=== PATIENT | male | born 1980 | race Caucasian/White ===

== ENCOUNTER 2016-07-19 05:10 | Inpatient (IN) | payer BC ==
[2016-07-19] MEDS ORDERED: NORMAL SALINE 1,000 ML IV ONE (05:22)
[2016-07-19] MEDS ORDERED: ONDANSETRON HCL/PF 2 MG/ML VIAL IV ONE (05:23)
[2016-07-19] MEDS ORDERED: PANTOPRAZOLE SODIUM 40 MG in NORMAL SALINE 100 ML IV ONE (05:23)
[2016-07-19 05:29] LABS: Hematocrit 49.6 % (42.0-52.0); Hemoglobin 17.3 gm/dL (13.5-18.0); Mean Cell Volume 93.1 fl (78-100); Mean Corpuscular Hemoglobin 32.5 pg (27-31); Mean Corpuscular Hgb Conc 34.9 g/dl (32-36); Mean Platelet Volume 9.2 fl (6.0-9.5); Neutrophil # 10.6 K/mm3 (1.3-6.0); Neutrophil % 79.8 % (42-75.0); Platelet Count 254 K/mm3 (150-450); Red Blood Count 5.33 M/mm3 (4.7-6.0); Red Cell Distribution Width 12.3 % (11.5-14.0); White Blood Count 13.3 K/mm3 (4.0-10.5)
[2016-07-19] MEDS ORDERED: ONDANSETRON HCL/PF 2 MG/ML VIAL ONE (05:31)
[2016-07-19] MEDS ORDERED: PANTOPRAZOLE SODIUM 40 MG/100 ML PIGGYBACK IV ONE (05:31)
--- NOTE | 2016-07-19 05:38 | ERNOTE ---
Abdominal HPI - Narrative Date of Service: 07/19/16 - General Chief Complaint: Abdominal Pain Time Seen by Provider: 07/19/16 05:21 Source: patient, EMS Exam Limitations: no limitations - Immun/Allergies/Home Medications Immunizatons: IMMUNIZATION HX History of Influenza Vaccine Yes Hx Pneumococcal Vaccination No Allergies/Adverse Reactions: Allergies No Known Allergies Allergy (Verified 07/19/16 05:18) Home Medications: HOME MEDICATIONS amLODIPine BESYLATE 07/19/16 [Last Taken Unknown] - History of Present Illness Narrative: Mid abdominal pain for 2 weeks. He drinks 8-20 beer per day. He had 8 beer last night but can't stand the pain now. He has been vomiting since 0130. No hematemesis. No fever. No diarrhea. Has not had anything like this before. Date (Duration): 07/05/16 Timing: getting worse Quality: severe, aching, sharpness Modifying Factors - (Improves): Present: sitting up Modifying Factors - (Worsens): Present: eating Associated Symptoms: Absent: chest pain, diarrhea-gross blood, shortness of breath Prior Abdominal Problems: Present: none Prior Treatment: Absent: recently seen, treated by physician, currently on antibiotics Review of Systems - Review of Systems Constitutional: Absent: fever, chills EYE: Present: no symptoms reported Respiratory: Present: no symptoms reported Cardiology: Present: no symptoms reported Gastrointestinal/Abdominal: Present: nausea, vomiting, abdominal pain, eating less, drinking less Genitourinary: Present: no symptoms reported Musculoskeletal: Present: no symptoms reported Skin: Absent: rash Neurological: Present: no symptoms reported Hematologic/Lymphatic: Absent: easy bruising, easy bleeding Psych: Present: no symptoms reported - Patient's Past Medical History Patient History - Medical: No pertinent hx, Alcohol Abuse Patient History - Cardiac/Respiratory: Hypertension Patient History - Cancer: No Hx of Cancer Patient History - Surgical Procedures: No surgical history - Social History Living Situations: home Smoking Status: Current every day smoker Alcohol Use: heavy Drug Use: none Physical Exam - Physical Exam General Appearance: Present: alert, moderate distress Eye Exam: Normal inspection: bilateral, PERRL: bilateral, EOMI: bilateral Ears, Nose, Throat: Present: normal ENT inspection, hearing grossly normal Neck: Present: nontender Respiratory: Present: no respiratory distress, normal breath sounds, lungs clear Cardiovascular/Chest: Present: regular rate, rhythm, no murmur, normal peripheral pulses Gastrointestinal/Abdominal: Present: normal bowel sounds, tenderness - mid abd and epigastrium. Absent: guarding, rebound Back Exam: Present: normal inspection, no CVA tenderness. Absent: CVA tenderness (R), CVA tenderness (L) Extremity Exam: Present: normal inspection Neurological Exam: Present: alert, normal mood/affect Skin Exam: Present: other - petechia face ED Progress - Results and Orders Patient's Lab Results:: I have reviewed the patient's lab results. - Vital Signs Patient's Vital Signs:: I have reviewed the patient's vital signs. Vital Signs: Vital Signs 07/19/16 05:11 Temperature 36.0 C L Pulse Rate 115 H Respiratory 18 Rate Blood Pressure 158/102 - CT/Ultrasound CT/Ultrasound Narrative: CT - eric-pancreatic fluid, no pseudocyst. Appx normal. - Progress/Reassessment Chief Complaint: Abdominal Pain Plan - Plan Plan: Acute alcoholic pancreatitis, admit, NPO, IV fluids, CIWA, Ativan or valium. Pain control. Serial labs. Discussed with Dr. Hooks. Departure - Departure Clinical Impression: Acute alcoholic pancreatitis Disposition: [facility] Condition: Fair
[2016-07-19 05:39] LABS: INR 0.96 INR (0.90-1.10); Partial Thrombolplastin Time 24.3 Seconds (24-32)
[2016-07-19 05:44] LABS: ALT 101 U/L (19-67); AST 99 U/L (0-48); Albumin * 3.9 gm/dl (3.4-5.0); Alkaline Phosphatase * 81 U/L (50-170); Anion Gap 14.1 mmol/L (6.8-13.8); BUN/Creatinine Ratio 10.2 (9.0-21.6); Bilirubin, Total 0.4 mg/dL (0.0-1.1); Blood Urea Nitrogen 11 mg/dL (6-23); Ca. Corrected For Albumin 9.3 mg/dL (8.4-10.2); Calcium * 9.5 mg/dL (7.9-10.9); Carbon Dioxide 28.6 mmol/L (24-32.6); Chloride 100 mmol/L (97-106); Glucose * 139 mg/dL (70-110); Potassium 3.7 mmol/L (3.4-4.6); Sodium 139 mmol/L (132-142)
[2016-07-19 05:55] LABS: Amylase * 2487 U/L (25-115)
[2016-07-19] MEDS ORDERED: HYDROmorphone HCL 1 MG/ML DISP.SYRIN IV ONE (06:20)
[2016-07-19] MEDS ORDERED: HYDROmorphone HCL 1 MG/ML DISP.SYRIN ONE (06:22)
[2016-07-19 06:26] LABS: Lipase 57575 U/L (73-393)
[2016-07-19] MEDS ORDERED: THIAMINE HCL 100 MG in NORMAL SALINE 50 ML IV ONE (06:38)
[2016-07-19] MEDS ORDERED: NALOXONE HCL 1 MG/1 ML SYRG IV PRN (09:30)
[2016-07-19] MEDS: HYDROmorphone HCL IN 0.9% NACL 50 ML CARTRIDGE IV PRN ×3 (09:52→21:05)
[2016-07-19] MEDS ORDERED: ONDANSETRON HCL/PF 2 MG/ML VIAL IV PRN (14:24)
[2016-07-19] MEDS: MULTIVIT INFUSN,ADULT 4,VIT K 10 ML, THIAMINE HCL 100 MG in DEXTROSE 5 % IN WATER 1,000 ML IV SCH ×3 (20:26)
--- NOTE | 2016-07-19 23:49 | HP ---
Chief Complaint - Chief Complaint Date of Service: 07/19/16 Time of Service: 12:17 Chief Complaint: Abdominal Pain History of Present Illness: Cristofer is a 36 yo male who reports abdominal pain progressively getting worse over the last 2 weeks. He has had nausea and emesis. He reports typically drinks 6-20 beers a day, but because of feeling sick has not had anything to drink for a few days. He has never had pancreatitis. With worsening abdominal pain he presented to the [facility] ER for evaluation. He had bloodwork that showed lipase of 57,[address] was performed showing pancreatitis without abscess or pseudo-cyst. - Patient's Past Medical History Patient History - Medical: No pertinent hx, Alcohol Abuse Patient History - Cardiac/Respiratory: Hypertension Patient History - Cancer: No Hx of Cancer Patient History - Surgical Procedures: No surgical history - Family History Mother Family History - Medical: History Unknown Family History - Cardiac/Respiratory: History Unknown Father Family History - Medical: History Unknown Family History - Cardiac/Respiratory: History Unknown - Social History Living Situations: alone Smoking Status: Current every day smoker Have you smoked in the past 12 months: Yes Do you dip or chew tobacco: No Patient requests Smoking Cessation Consult: No Initiate information on Smoking Cessation: No Alcohol Use: heavy Drug Use: none Review Of Systems (GEN) - Review of Systems Generalized/Overall Review: Absent: Weakness, Chills, Fever EENTM: Present: No Symptoms Reported Respiratory: Present: No Symptoms Reported Cardiac: Present: No Symptoms Reported Abdominal: Present: Nausea, Vomiting, Abdominal Pain. Absent: Constipation, Diarrhea Genitourinary: Present: No Symptoms Reported Musculoskeletal: Present: No Symptoms Reported Neurological: Present: No Symptoms Reported Skin: Present: No Symptoms Reported Endocrine: Present: No Symptoms Reported Allergies/Adverse Reactions: Allergies Allergy/AdvReac Type Severity Reaction Status Date / Time No Known Allergies Allergy Verified 07/19/16 05:18 Home Medications: HOME MEDICATIONS amLODIPine BESYLATE [Norvasc] 5 mg PO DAILY 07/19/16 [Last Taken 07/18/16] Exam - Exam Vital Signs: Vital Signs - Last Taken Temp 36.5 C 07/19/16 18:00 Pulse 101 H 07/19/16 18:00 Resp 16 07/19/16 18:00 BP 147/103 07/19/16 18:00 Pulse Ox 95 07/19/16 18:00 Constitutional: Present: Alert, Oriented x3, Cooperative ENT Exam: Present: hearing grossly normal Eye Exam: bilateral eye: normal inspection Respiratory: Present: lungs clear, normal breath sounds Cardiovascular/Chest: Present: regular rate, rhythm, no murmur Abdomen: Present: Normal bowel sounds, soft, nondistended, tender - diffuse Skin Exam: Present: normal color, warm/dry, no cyanosis Diagnostic Studies: Laboratory Results WBC 13.3 K/mm3 (4.0-10.5) H 07/19/16 05:27 RBC 5.33 M/mm3 (4.7-6.0) 07/19/16 05:27 Hgb 17.3 gm/dL (13.5-18.0) 07/19/16 05:27 Hct 49.6 % (42.0-52.0) 07/19/16 05:27 MCV 93.1 fl (78-100) 07/19/16 05:27 MCH 32.5 pg (27-31) H 07/19/16 05:27 MCHC 34.9 g/dl (32-36) 07/19/16 05:27 RDW 12.3 % (11.5-14.0) 07/19/16 05:27 Plt Count 254 K/mm3 (150-450) 07/19/16 05:27 MPV 9.2 fl (6.0-9.5) 07/19/16 05:27 Immature Gran % (Auto) 0.50 % (0.001-0.429) H 07/19/16 05:27 Immature Gran # (Auto) 0.06 K/mm3 (0.000-0.0310) H 07/19/16 05:27 Neutrophils % 79.8 % (42-75.0) H 07/19/16 05:27 Lymphocytes % 9.6 % (20-51) L 07/19/16 05:27 Monocytes % 9.2 % (0.0-9) H 07/19/16 05:27 Eosinophils % 0.5 % (0.0-3.0) 07/19/16 05:27 Basophils % 0.4 % (0.0-1.0) 07/19/16 05:27 Nucleated RBC % 0.0 k/mm3 (0-1) 07/19/16 05:27 Neutrophils # 10.6 K/mm3 (1.3-6.0) H 07/19/16 05:27 Lymphocytes # 1.3 k/mm3 (1.5-3.5) L 07/19/16 05:27 Monocytes # 1.2 k/mm3 (0.0-1.0) H 07/19/16 05:27 Eosinophils # 0.1 k/mm3 (0.0-0.7) 07/19/16 05:27 Absolute Basophils 0.1 k/mm3 (0.0-0.1) 07/19/16 05:27 PT 10.0 Seconds (9.4-11.4) 07/19/16 05:27 INR (Anticoag Therapy) 0.96 INR (0.90-1.10) 07/19/16 05:27 PTT (Elaine) 24.3 Seconds (24-32) 07/19/16 05:27 Sodium 139 mmol/L (132-142) 07/19/16 05:27 Plasma Sodium 140 mmol/L (130-142) 07/19/16 05:27 Potassium 3.7 mmol/L (3.4-4.6) 07/19/16 05:27 Chloride 100 mmol/L (97-106) 07/19/16 05:27 Carbon Dioxide 28.6 mmol/L (24-32.6) 07/19/16 05:27 Anion Gap 14.1 mmol/L (6.8-13.8) H 07/19/16 05:27 BUN 11 mg/dL (6-23) D 07/19/16 05:27 Creatinine 1.08 mg/dL (0.4-1.4) 07/19/16 05:27 Est GFR (Non-Af Amer) 81 mL/min (60-130) D 07/19/16 05:27 BUN/Creatinine Ratio 10.2 (9.0-21.6) 07/19/16 05:27 Random Glucose 139 mg/dL (70-110) H 07/19/16 05:27 Calcium 9.5 mg/dL (7.9-10.9) 07/19/16 05:27 Calcium Adj for Albumin 9.3 mg/dL (8.4-10.2) 07/19/16 05:27 Total Bilirubin 0.4 mg/dL (0.0-1.1) 07/19/16 05:27 AST 99 U/L (0-48) H 07/19/16 05:27 ALT 101 U/L (19-67) H 07/19/16 05:27 Alkaline Phosphatase 81 U/L (50-170) 07/19/16 05:27 Total Protein 8.0 gm/dL (6.2-8.2) 07/19/16 05:27 Albumin 3.9 gm/dl (3.4-5.0) 07/19/16 05:27 Amylase 2487 U/L (25-115) H 07/19/16 05:27 Lipase 52620 U/L (73-393) H 07/19/16 05:27 Ethyl Alcohol Less than 3.0 mg/dL (0.0-10.0) 07/19/16 05:27 Assessment/Plan - Assessment/Plan (1) Acute alcoholic pancreatitis Assessment: Cristofer is a 36 yo male with acute alcohol pancreatitis without abscess or pseudocyst. Will treat with GI rest and make NPO, will treat pain with Dilaudid [employer], will give IVF, and monitor pancreatic enzymes. Due to the severity of lipase 57,000 expect 3-5 days for his pancreatitits to improve. Once pain is not requiring IV pain medication will advance diet as tolerated. Will admit to acute inpatient status. Problem: Acute
[2016-07-20] MEDS: diphenhydrAMINE HCL 50 MG/ML VIAL IV PRN (01:29)
[2016-07-20] MEDS ORDERED: LORazepam 1 MG TABLET PO PRN ×3 (01:50)
[2016-07-20] MEDS: DEXTROSE 5%-0.5 NORMAL SALINE 1,000 ML IV PRN ×2 (05:11→11:19)
[2016-07-20] MEDS: HYDROmorphone HCL IN 0.9% NACL 50 ML CARTRIDGE IV PRN ×2 (05:38→14:58)
[2016-07-20] MEDS: MULTIVIT INFUSN,ADULT 4,VIT K 10 ML, THIAMINE HCL 100 MG in DEXTROSE 5 % IN WATER 1,000 ML IV SCH ×6 (06:34→18:59)
[2016-07-20 08:50] LABS: Hematocrit 46.2 % (42.0-52.0); Hemoglobin 15.8 gm/dL (13.5-18.0); Mean Cell Volume 94.5 fl (78-100); Mean Corpuscular Hemoglobin 32.3 pg (27-31); Mean Corpuscular Hgb Conc 34.2 g/dl (32-36); Mean Platelet Volume 9.1 fl (6.0-9.5); Neutrophil # 10.3 K/mm3 (1.3-6.0); Neutrophil % 87.4 % (42-75.0); Platelet Count 209 K/mm3 (150-450); Red Blood Count 4.89 M/mm3 (4.7-6.0); Red Cell Distribution Width 12.5 % (11.5-14.0); White Blood Count 11.8 K/mm3 (4.0-10.5)
[2016-07-20] MEDS: FOLIC ACID 1 MG TABLET PO SCH (08:50)
[2016-07-20] MEDS: amLODIPine BESYLATE 5 MG TABLET PO SCH (08:50)
[2016-07-20 09:10] LABS: Albumin * 3.4 gm/dl (3.4-5.0); BUN/Creatinine Ratio 10.9 (9.0-21.6); Bilirubin, Total 0.7 mg/dL (0.0-1.1); Ca. Corrected For Albumin 8.7 mg/dL (8.4-10.2); Calcium * 8.5 mg/dL (7.9-10.9); Carbon Dioxide 25.9 mmol/L (24-32.6); Potassium 3.9 mmol/L (3.4-4.6); Total Protein 7.2 gm/dL (6.2-8.2)
[2016-07-20] MEDS: CLONIDINE HCL 0.1 MG TABLET PO SCH ×2 (14:20→21:47)
--- NOTE | 2016-07-20 23:43 | PN ---
Subjective - Date and Time Seen Date: 07/20/16 Time: 13:25 Subjective Narrative: Abdominal pain improved, mild nausea. Lipase down from 57k to 7k. Feeling really thirsty. Objective - Vitals Vitals: Last Vital Signs Temp 36.8 C 07/20/16 23:10 Pulse 106 H 07/20/16 23:10 Resp 20 07/20/16 23:10 BP 138/90 07/20/16 23:10 Pulse Ox 89 L 07/20/16 23:10 - Abnormal Lab Findings Abnormal Lab Findings: Abnormal Lab Results 07/20/16 07/20/16 Range/Units 08:43 08:43 WBC 11.8 H (4.0-10.5) K/mm3 MCH 32.3 H (27-31) pg Immature Gran # (Auto) 0.05 H (0.000-0.0310) K/mm3 Neutrophils % 87.4 H (42-75.0) % Lymphocytes % 4.1 L (20-51) % Neutrophils # 10.3 H (1.3-6.0) K/mm3 Lymphocytes # 0.5 L (1.5-3.5) k/mm3 Anion Gap 15.0 H (6.8-13.8) mmol/L Random Glucose 129 H (70-110) mg/dL Amylase 834 H (25-115) U/L Lipase 7254 H (73-393) U/L - Exam Constitutional: Present: Alert, Oriented x3, Cooperative ENT Exam: Present: hearing grossly normal Respiratory: Present: lungs clear, normal breath sounds Cardiovascular/Chest: Present: regular rate, rhythm, no murmur Abdomen: Present: Normal bowel sounds, soft, nondistended, tender Assessment/Plan - Problems/Diagnosis (1) Acute alcoholic pancreatitis Problem: Acute Narrative: Lipase dramatically improved. Continue NPO as he is still having pain. Continue IVF.
[2016-07-21] MEDS: HYDROmorphone HCL IN 0.9% NACL 50 ML CARTRIDGE IV PRN ×2 (01:03→08:59)
[2016-07-21] MEDS: diphenhydrAMINE HCL 50 MG/ML VIAL IV PRN (02:01)
[2016-07-21] MEDS: DEXTROSE 5%-0.5 NORMAL SALINE 1,000 ML IV PRN ×2 (04:04→11:53)
[2016-07-21] MEDS: CLONIDINE HCL 0.1 MG TABLET PO SCH ×3 (06:18→23:14)
[2016-07-21 06:59] LABS: Hematocrit 40.6 % (42.0-52.0); Hemoglobin 13.7 gm/dL (13.5-18.0); Mean Cell Volume 95.1 fl (78-100); Mean Corpuscular Hemoglobin 32.1 pg (27-31); Mean Corpuscular Hgb Conc 33.7 g/dl (32-36); Mean Platelet Volume 9.6 fl (6.0-9.5); Neutrophil % 83.6 % (42-75.0); Platelet Count 158 K/mm3 (150-450); Red Blood Count 4.27 M/mm3 (4.7-6.0); Red Cell Distribution Width 12.4 % (11.5-14.0); White Blood Count 10.8 K/mm3 (4.0-10.5)
[2016-07-21 07:14] LABS: Albumin * 2.8 gm/dl (3.4-5.0); Anion Gap 8.5 mmol/L (6.8-13.8); BUN/Creatinine Ratio 5.7 (9.0-21.6); Ca. Corrected For Albumin 8.7 mg/dL (8.4-10.2); Calcium * 8.1 mg/dL (7.9-10.9); Carbon Dioxide 31.8 mmol/L (24-32.6); Potassium 3.3 mmol/L (3.4-4.6); Total Protein 6.5 gm/dL (6.2-8.2)
[2016-07-21] MEDS: amLODIPine BESYLATE 5 MG TABLET PO SCH (08:28)
[2016-07-21] MEDS: FOLIC ACID 1 MG TABLET PO SCH (08:28)
[2016-07-21] MEDS ORDERED: POTASSIUM CHLORIDE IV ONE (09:15)
[2016-07-21] MEDS ORDERED: NORMAL SALINE IV ONE (09:15)
[2016-07-21] MEDS: ACETAMINOPHEN 325 MG TABLET PO PRN (11:19)
[2016-07-21] MEDS: HYDROmorphone HCL 1 MG/ML DISP.SYRIN IV PRN ×2 (19:10→23:14)
[2016-07-21] MEDS: MULTIVIT INFUSN,ADULT 4,VIT K 10 ML, THIAMINE HCL 100 MG in DEXTROSE 5 % IN WATER 1,000 ML IV SCH ×3 (19:46)
--- NOTE | 2016-07-21 23:48 | PN ---
Subjective - Date and Time Seen Date: 07/21/16 Time: 16:47 Subjective Narrative: Reports feeling better. No nausea. Abdominal pain 3/10. Thirsty. Using ice chips and mouth swabs. Objective - Vitals Vitals: Last Vital Signs Temp 37.6 C H 07/21/16 18:47 Pulse 103 H 07/21/16 23:14 Resp 17 07/21/16 18:47 BP 125/75 07/21/16 23:14 Pulse Ox 93 07/21/16 18:47 - Abnormal Lab Findings Abnormal Lab Findings: Abnormal Lab Results 07/21/16 07/21/16 Range/Units 06:45 06:45 WBC 10.8 H (4.0-10.5) K/mm3 RBC 4.27 L (4.7-6.0) M/mm3 Hct 40.6 L (42.0-52.0) % MCH 32.1 H (27-31) pg MPV 9.6 H (6.0-9.5) fl Neutrophils % 83.6 H (42-75.0) % Lymphocytes % 6.5 L (20-51) % Monocytes % 9.4 H (0.0-9) % Neutrophils # 9.0 H (1.3-6.0) K/mm3 Lymphocytes # 0.7 L (1.5-3.5) k/mm3 Potassium 3.3 L (3.4-4.6) mmol/L Chloride 95 L (97-106) mmol/L BUN 5 L (6-23) mg/dL BUN/Creatinine Ratio 5.7 L (9.0-21.6) Albumin 2.8 L (3.4-5.0) gm/dl Amylase 449 H (25-115) U/L Lipase 4022 H (73-393) U/L - Exam Constitutional: Present: Alert, Oriented x3, Cooperative ENT Exam: Present: hearing grossly normal Respiratory: Present: lungs clear, normal breath sounds Cardiovascular/Chest: Present: regular rate, rhythm, no murmur Abdomen: Present: Normal bowel sounds, soft, nondistended, tender Skin Exam: Present: normal color, warm/dry, no cyanosis Assessment/Plan - Problems/Diagnosis (1) Acute alcoholic pancreatitis Problem: Acute Narrative: Improving. Lipase down to 4k, pain minimal. Will change dilaudid [employer] to just [employer] and remove the continuous dose. Continue NPO status. Once able to discontinue dilaudid will start clear liquid diet.
[2016-07-22] MEDS: HYDROmorphone HCL 1 MG/ML DISP.SYRIN IV PRN ×5 (03:25→21:23)
[2016-07-22] MEDS: DEXTROSE 5%-0.5 NORMAL SALINE 1,000 ML IV PRN ×2 (04:17→11:53)
[2016-07-22] MEDS: CLONIDINE HCL 0.1 MG TABLET PO SCH ×3 (05:17→21:24)
[2016-07-22] MEDS: amLODIPine BESYLATE 5 MG TABLET PO SCH (09:13)
[2016-07-22] MEDS: FOLIC ACID 1 MG TABLET PO SCH (09:13)
[2016-07-22 09:20] LABS: Hematocrit 37.8 % (42.0-52.0); Mean Corpuscular Hemoglobin 32.3 pg (27-31); Mean Corpuscular Hgb Conc 34.4 g/dl (32-36); Mean Platelet Volume 9.2 fl (6.0-9.5); Neutrophil # 7.5 K/mm3 (1.3-6.0); Neutrophil % 83.5 % (42-75.0); Platelet Count 162 K/mm3 (150-450); Red Blood Count 4.02 M/mm3 (4.7-6.0); Red Cell Distribution Width 11.9 % (11.5-14.0)
[2016-07-22 09:35] LABS: Albumin * 2.4 gm/dl (3.4-5.0); Anion Gap 11.1 mmol/L (6.8-13.8); BUN/Creatinine Ratio 5.3 (9.0-21.6); Bilirubin, Total 1.4 mg/dL (0.0-1.1); Ca. Corrected For Albumin 9.3 mg/dL (8.4-10.2); Calcium * 8.3 mg/dL (7.9-10.9); Carbon Dioxide 28.8 mmol/L (24-32.6); Potassium 2.9 mmol/L (3.4-4.6); Total Protein 6.3 gm/dL (6.2-8.2)
[2016-07-22] MEDS: POTASSIUM CHLORIDE 20 MEQ TABLET.SA PO SCH ×2 (11:04→21:24)
[2016-07-22] MEDS: MULTIVIT INFUSN,ADULT 4,VIT K 10 ML, THIAMINE HCL 100 MG in DEXTROSE 5 % IN WATER 1,000 ML IV SCH ×3 (18:45)
[2016-07-22] MEDS: ACETAMINOPHEN 325 MG TABLET PO PRN (18:46)
[2016-07-22] MEDS: BISACODYL 10 MG SUPP.RECT RC SCH (21:25)
--- NOTE | 2016-07-22 23:43 | PN ---
Subjective - Date and Time Seen Date: 07/22/16 Time: 12:30 Subjective Narrative: Patient reports pain better, no nausea/vomiting/fever/chills. Appetite returns. Objective - Vitals Vitals: Last Vital Signs Temp 38.5 C H 07/22/16 18:33 Pulse 95 07/22/16 21:24 Resp 20 07/22/16 18:33 BP 128/80 07/22/16 21:24 Pulse Ox 92 07/22/16 18:33 - Abnormal Lab Findings Abnormal Lab Findings: Abnormal Lab Results 07/22/16 07/22/16 Range/Units 09:09 09:09 RBC 4.02 L (4.7-6.0) M/mm3 Hgb 13.0 L (13.5-18.0) gm/dL Hct 37.8 L (42.0-52.0) % MCH 32.3 H (27-31) pg Neutrophils % 83.5 H (42-75.0) % Lymphocytes % 5.2 L (20-51) % Monocytes % 10.9 H (0.0-9) % Neutrophils # 7.5 H (1.3-6.0) K/mm3 Lymphocytes # 0.5 L (1.5-3.5) k/mm3 Potassium 2.9 L (3.4-4.6) mmol/L Chloride 95 L (97-106) mmol/L BUN 4 L (6-23) mg/dL BUN/Creatinine Ratio 5.3 L (9.0-21.6) Total Bilirubin 1.4 H (0.0-1.1) mg/dL Albumin 2.4 L (3.4-5.0) gm/dl Amylase 137 H (25-115) U/L Lipase 602 H (73-393) U/L - Exam Constitutional: Present: Alert, Oriented x3, Cooperative ENT Exam: Present: hearing grossly normal Respiratory: Present: lungs clear, normal breath sounds Cardiovascular/Chest: Present: regular rate, rhythm, no murmur Abdomen: Present: Normal bowel sounds, soft, nondistended, tender - lower quadrants Assessment/Plan - Problems/Diagnosis (1) Acute alcoholic pancreatitis Problem: Acute Narrative: Abdominal pain still present but lower quadrants. Suspect from stool retention. Encouraged use of suppository to help. Will stop dilaudid and advance to clear liquids as he does not appear to have pain from pancreatitis and enzymes have significantly improved.
[2016-07-23] MEDS: ACETAMINOPHEN 325 MG TABLET PO PRN ×2 (01:46→11:12)
[2016-07-23] MEDS: HYDROmorphone HCL 1 MG/ML DISP.SYRIN IV PRN ×2 (02:10→06:39)
[2016-07-23] MEDS: DEXTROSE 5%-0.5 NORMAL SALINE 1,000 ML IV PRN ×2 (03:37→11:08)
[2016-07-23] MEDS: CLONIDINE HCL 0.1 MG TABLET PO SCH ×3 (05:55→21:47)
[2016-07-23] MEDS: POTASSIUM CHLORIDE 20 MEQ TABLET.SA PO SCH ×2 (09:30→21:46)
[2016-07-23] MEDS: BISACODYL 10 MG SUPP.RECT RC SCH (09:30)
[2016-07-23] MEDS: amLODIPine BESYLATE 5 MG TABLET PO SCH (09:31)
[2016-07-23] MEDS: FOLIC ACID 1 MG TABLET PO SCH (09:31)
[2016-07-23 10:31] LABS: Hematocrit 39.9 % (42.0-52.0); Hemoglobin 13.3 gm/dL (13.5-18.0); Mean Cell Volume 94.1 fl (78-100); Mean Corpuscular Hemoglobin 31.4 pg (27-31); Mean Corpuscular Hgb Conc 33.3 g/dl (32-36); Mean Platelet Volume 9.4 fl (6.0-9.5); Neutrophil # 5.9 K/mm3 (1.3-6.0); Neutrophil % 78.6 % (42-75.0); Platelet Count 230 K/mm3 (150-450); Red Blood Count 4.24 M/mm3 (4.7-6.0); Red Cell Distribution Width 11.9 % (11.5-14.0); White Blood Count 7.4 K/mm3 (4.0-10.5)
[2016-07-23 10:51] LABS: Albumin * 2.4 gm/dl (3.4-5.0); Anion Gap 11.6 mmol/L (6.8-13.8); BUN/Creatinine Ratio 6.1 (9.0-21.6); Bilirubin, Total 0.9 mg/dL (0.0-1.1); Ca. Corrected For Albumin 9.6 mg/dL (8.4-10.2); Calcium * 8.6 mg/dL (7.9-10.9); Carbon Dioxide 27.7 mmol/L (24-32.6); Potassium 3.3 mmol/L (3.4-4.6); Total Protein 6.7 gm/dL (6.2-8.2)
[2016-07-23] MEDS ORDERED: MAGNESIUM HYDROXIDE 30 ML UDC PO ONE (11:49)
[2016-07-23] MEDS: MULTIVIT INFUSN,ADULT 4,VIT K 10 ML, THIAMINE HCL 100 MG in DEXTROSE 5 % IN WATER 1,000 ML IV SCH ×3 (19:24)
[2016-07-23] MEDS ORDERED: MAGNESIUM CITRATE 300 ML BTL PO ONE (20:17)
[2016-07-23] MEDS ORDERED: MAGNESIUM CITRATE 300 ML BTL ONE (21:45)
--- NOTE | 2016-07-23 23:33 | PN ---
Subjective - Date and Time Seen Date: 07/23/16 Time: 12:15 Subjective Narrative: Pain minimal and localized to lower quandrants. No nausea, fever, or chills. Objective - Vitals Vitals: Last Vital Signs Temp 37.4 C 07/23/16 20:53 Pulse 83 07/23/16 21:47 Resp 16 07/23/16 20:53 BP 120/78 07/23/16 21:47 Pulse Ox 96 07/23/16 20:53 - Abnormal Lab Findings Abnormal Lab Findings: Abnormal Lab Results 07/23/16 07/23/16 Range/Units 10:10 10:10 RBC 4.24 L (4.7-6.0) M/mm3 Hgb 13.3 L (13.5-18.0) gm/dL Hct 39.9 L (42.0-52.0) % MCH 31.4 H (27-31) pg Neutrophils % 78.6 H (42-75.0) % Lymphocytes % 6.3 L (20-51) % Monocytes % 14.2 H (0.0-9) % Lymphocytes # 0.5 L (1.5-3.5) k/mm3 Monocytes # 1.1 H (0.0-1.0) k/mm3 Potassium 3.3 L (3.4-4.6) mmol/L BUN 4 L (6-23) mg/dL Est GFR (Non-Af Amer) 144 H (60-130) mL/min BUN/Creatinine Ratio 6.1 L (9.0-21.6) Albumin 2.4 L (3.4-5.0) gm/dl Lipase 495 H (73-393) U/L - Exam Constitutional: Present: Alert, Oriented x3, Cooperative ENT Exam: Present: hearing grossly normal Respiratory: Present: lungs clear, normal breath sounds Cardiovascular/Chest: Present: regular rate, rhythm, no murmur Abdomen: Present: Normal bowel sounds, soft, nondistended, tender - lower quadrants Assessment/Plan - Problems/Diagnosis (1) Acute alcoholic pancreatitis Problem: Acute Narrative: Will monitor on clear liquids, if tolerating will advance to low fat diet. Continue IVF.
[2016-07-24] MEDS: DEXTROSE 5%-0.5 NORMAL SALINE 1,000 ML IV PRN ×2 (04:09→15:27)
[2016-07-24] MEDS: CLONIDINE HCL 0.1 MG TABLET PO SCH ×3 (05:26→21:14)
[2016-07-24] MEDS: BISACODYL 10 MG SUPP.RECT RC SCH (08:49)
[2016-07-24] MEDS: FOLIC ACID 1 MG TABLET PO SCH (08:50)
[2016-07-24] MEDS: POTASSIUM CHLORIDE 20 MEQ TABLET.SA PO SCH ×2 (08:51→21:12)
[2016-07-24] MEDS: amLODIPine BESYLATE 5 MG TABLET PO SCH (08:51)
[2016-07-24 10:20] LABS: Hematocrit 36.8 % (42.0-52.0); Hemoglobin 12.9 gm/dL (13.5-18.0); Mean Cell Volume 92.2 fl (78-100); Mean Corpuscular Hemoglobin 32.3 pg (27-31); Mean Corpuscular Hgb Conc 35.1 g/dl (32-36); Mean Platelet Volume 9.7 fl (6.0-9.5); Neutrophil # 9.4 K/mm3 (1.3-6.0); Platelet Count 260 K/mm3 (150-450); Red Blood Count 3.99 M/mm3 (4.7-6.0); Red Cell Distribution Width 11.8 % (11.5-14.0); White Blood Count 11.7 K/mm3 (4.0-10.5)
[2016-07-24 11:01] LABS: Albumin * 2.4 gm/dl (3.4-5.0); Anion Gap 13.2 mmol/L (6.8-13.8); BUN/Creatinine Ratio 5.7 (9.0-21.6); Bilirubin, Total 0.6 mg/dL (0.0-1.1); Carbon Dioxide 22.2 mmol/L (24-32.6); Potassium 3.4 mmol/L (3.4-4.6); Total Protein 6.9 gm/dL (6.2-8.2)
[2016-07-24] MEDS: MULTIVIT INFUSN,ADULT 4,VIT K 10 ML, THIAMINE HCL 100 MG in DEXTROSE 5 % IN WATER 1,000 ML IV SCH ×3 (19:18)
--- NOTE | 2016-07-24 23:34 | PN ---
Subjective - Date and Time Seen Date: 07/24/16 Time: 17:11 Subjective Narrative: Reports abdominal pain and nausea were increased. He did not eat breakfast and only wanted clears for lunch and dinner. Pain is lower abdomen. Objective - Vitals Vitals: Last Vital Signs Temp 36.5 C 07/24/16 20:54 Pulse 78 07/24/16 21:14 Resp 18 07/24/16 20:54 BP 120/83 07/24/16 21:14 Pulse Ox 98 07/24/16 20:54 - Abnormal Lab Findings Abnormal Lab Findings: Abnormal Lab Results 07/24/16 07/24/16 Range/Units 09:55 09:55 WBC 11.7 H D (4.0-10.5) K/mm3 RBC 3.99 L (4.7-6.0) M/mm3 Hgb 12.9 L (13.5-18.0) gm/dL Hct 36.8 L (42.0-52.0) % MCH 32.3 H (27-31) pg MPV 9.7 H (6.0-9.5) fl Immature Gran # (Auto) 0.05 H (0.000-0.0310) K/mm3 Neutrophils % 80.0 H (42-75.0) % Lymphocytes % 6.3 L (20-51) % Monocytes % 12.7 H (0.0-9) % Neutrophils # 9.4 H (1.3-6.0) K/mm3 Lymphocytes # 0.7 L (1.5-3.5) k/mm3 Monocytes # 1.5 H (0.0-1.0) k/mm3 Carbon Dioxide 22.2 L (24-32.6) mmol/L BUN 4 L (6-23) mg/dL Est GFR (Non-Af Amer) 134 H (60-130) mL/min BUN/Creatinine Ratio 5.7 L (9.0-21.6) Random Glucose 126 H (70-110) mg/dL AST 59 H (0-48) U/L Albumin 2.4 L (3.4-5.0) gm/dl Lipase 749 H (73-393) U/L - Exam Constitutional: Present: Alert, Oriented x3, Cooperative ENT Exam: Present: hearing grossly normal Respiratory: Present: lungs clear, normal breath sounds Cardiovascular/Chest: Present: regular rate, rhythm, no murmur Abdomen: Present: Normal bowel sounds, soft, nondistended, tender - Lower quadrants Assessment/Plan - Problems/Diagnosis (1) Acute alcoholic pancreatitis Problem: Acute Narrative: Lipase bumped a little and pain worsened, however still in lower quadrants and not epigastric. Will continue on clear liquids. Will repeat CT of abdomen to re- evaluated pain as I expect it to be improving.
[2016-07-25] MEDS: DEXTROSE 5%-0.5 NORMAL SALINE 1,000 ML IV PRN ×2 (04:59→18:48)
[2016-07-25] MEDS: CLONIDINE HCL 0.1 MG TABLET PO SCH ×2 (05:43→21:27)
[2016-07-25] MEDS ORDERED: DIATRIZOATE MEGLU/DIATRIZO SOD 30 ML BTL PO ONE (06:30)
[2016-07-25] MEDS: ACETAMINOPHEN 325 MG TABLET PO PRN (07:49)
[2016-07-25 08:15] LABS: Hematocrit 37.1 % (42.0-52.0); Hemoglobin 12.9 gm/dL (13.5-18.0); Mean Cell Volume 93.2 fl (78-100); Mean Corpuscular Hemoglobin 32.4 pg (27-31); Mean Corpuscular Hgb Conc 34.8 g/dl (32-36); Mean Platelet Volume 9.4 fl (6.0-9.5); Platelet Count 356 K/mm3 (150-450); Red Blood Count 3.98 M/mm3 (4.7-6.0); Red Cell Distribution Width 11.9 % (11.5-14.0); White Blood Count 14.5 K/mm3 (4.0-10.5)
[2016-07-25 08:19] LABS: Total Cells Counted 100
[2016-07-25 08:31] LABS: Albumin * 2.5 gm/dl (3.4-5.0); Anion Gap 14.3 mmol/L (6.8-13.8); BUN/Creatinine Ratio 3.7 (9.0-21.6); Bilirubin, Total 0.5 mg/dL (0.0-1.1); Ca. Corrected For Albumin 9.7 mg/dL (8.4-10.2); Calcium * 8.8 mg/dL (7.9-10.9); Carbon Dioxide 21.4 mmol/L (24-32.6); Potassium 3.7 mmol/L (3.4-4.6); Total Protein 7.2 gm/dL (6.2-8.2)
[2016-07-25] MEDS: FOLIC ACID 1 MG TABLET PO SCH (09:06)
[2016-07-25] MEDS: POTASSIUM CHLORIDE 20 MEQ TABLET.SA PO SCH ×2 (09:07→21:27)
[2016-07-25] MEDS: amLODIPine BESYLATE 5 MG TABLET PO SCH (09:08)
[2016-07-25] MEDS: BISACODYL 10 MG SUPP.RECT RC SCH (09:10)
[2016-07-25 09:15] LABS: Atypical (Reactive) Lymph 3 % (0-2); Band 8 % (0-2.0); Lymphocyte 3 % (20-51); Monocyte 7 % (0-9); Neutrophil 79 % (42-75); Neutrophil # 11.5 K/mm3 (1.3-6.0)
[2016-07-25 09:16] LABS: Platelet Estimate Normal (NORMAL)
[2016-07-25 09:17] LABS: RBC Morphology Normal (NORMAL)
[2016-07-25] MEDS: KETOROLAC TROMETHAMINE 30 MG/ML VIAL IV PRN (15:15)
[2016-07-25] MEDS ORDERED: POTASSIUM PHOS,M-BASIC-D-BASIC 18 MM, ELECTROLYTE SOLUTION,INJ 20 ML, MULTIVIT INFUSN,A... IV SCH ×6 (16:00)
--- NOTE | 2016-07-25 17:45 | OR ---
Anesthesia Procedure Note - Anesthesia Procedure Note Narrative: Vital Signs - Last Taken Temp 36.8 C 07/25/16 15:05 Pulse 94 07/25/16 15:05 Resp 24 H 07/25/16 15:05 BP 141/88 07/25/16 15:05 Pulse Ox 99 07/25/16 15:05 O2 Oxygen Delivery Method Room Air 07/25/16 17:42 ANESTHESIA PROCEDURE NOTE Date of procedure: 07/25/2016. Time of procedure: 1630. Performed by: Rui Santos CRNA Director Speech: None . Preprocedure diagnosis: Acute pancreatitis. Need for intravenous TPN therapy. Post procedure diagnosis: Same. Procedure: Right and antecubital PICC line insertion. Indications: TPN therapy. Findings: Right antecubital double-lumen PICC line was inserted under sterile technique. Place to 50 cm. Both lumens aspirate and flush easily. Chest x- ray ordered to confirm placement. EBL: Minimal. Fluids: N/A. Specimen: N/A. Post procedure condition: The patient tolerated the procedure well. No complications were noted. Thank you for this consultation Rui Santos CRNA
[2016-07-25] MEDS: HYDROmorphone HCL 1 MG/ML DISP.SYRIN IV PRN (21:27)
--- NOTE | 2016-07-25 23:55 | PN ---
Subjective - Date and Time Seen Date: 07/25/16 Time: 16:45 Subjective Narrative: Abdominal pain continues, no nausea or vomiting or fever. Objective - Vitals Vitals: Last Vital Signs Temp 37.4 C 07/25/16 23:34 Pulse 81 07/25/16 23:34 Resp 16 07/25/16 23:34 BP 119/79 07/25/16 23:34 Pulse Ox 100 07/25/16 23:34 - Abnormal Lab Findings Abnormal Lab Findings: Abnormal Lab Results 07/25/16 07/25/16 Range/Units 08:05 08:05 WBC 14.5 H D (4.0-10.5) K/mm3 RBC 3.98 L (4.7-6.0) M/mm3 Hgb 12.9 L (13.5-18.0) gm/dL Hct 37.1 L (42.0-52.0) % MCH 32.4 H (27-31) pg Neutrophils % (Manual) 79 H (42-75) % Band Neuts % (Manual) 8 H (0-2.0) % Lymphocytes % (Manual) 3 L (20-51) % Neutrophils # (Manual) 11.5 H (1.3-6.0) K/mm3 Lymphocytes # (Manual) 0.4 L (1.5-3.5) k/mm3 Atypic/Reactive Lymphs 3 H (0-2) % Carbon Dioxide 21.4 L (24-32.6) mmol/L Anion Gap 14.3 H (6.8-13.8) mmol/L BUN 3 L (6-23) mg/dL BUN/Creatinine Ratio 3.7 L (9.0-21.6) AST 68 H (0-48) U/L ALT 70 H (19-67) U/L Albumin 2.5 L (3.4-5.0) gm/dl Amylase 139 H (25-115) U/L Lipase 1092 H (73-393) U/L - Exam Constitutional: Present: Alert, Oriented x3, Cooperative ENT Exam: Present: hearing grossly normal Respiratory: Present: lungs clear, normal breath sounds Cardiovascular/Chest: Present: regular rate, rhythm, no murmur Abdomen: Present: Normal bowel sounds, soft, nondistended, no hepatospenomegaly , tender Skin Exam: Present: normal color, warm/dry, no cyanosis Assessment/Plan - Problems/Diagnosis (1) Acute alcoholic pancreatitis Problem: Acute Qualifiers: Acute pancreatitis complication: no infection or necrosis Qualified Code(s) : K85.20 - Alcohol induced acute pancreatitis without necrosis or infection Narrative: Acute pancreatitits worsening with more abdominal pain and enzymes elevated further. NPO. PICC line placed today, will start TPN.
[2016-07-26] MEDS: KETOROLAC TROMETHAMINE 30 MG/ML VIAL IV PRN ×3 (01:43→18:06)
[2016-07-26] MEDS: DEXTROSE 5%-0.5 NORMAL SALINE 1,000 ML IV PRN ×3 (01:47→18:05)
[2016-07-26 06:23] LABS: Albumin * 2.4 gm/dl (3.4-5.0); Anion Gap 14.8 mmol/L (6.8-13.8); BUN/Creatinine Ratio 5.2 (9.0-21.6); Bilirubin, Total 0.5 mg/dL (0.0-1.1); Ca. Corrected For Albumin 10.2 mg/dL (8.4-10.2); Calcium * 9.2 mg/dL (7.9-10.9); Carbon Dioxide 20.5 mmol/L (24-32.6); Magnesium 2.2 mg/dL (1.2-2.8); Phosphorus 3.8 mg/dL (2.2-4.2); Potassium 4.3 mmol/L (3.4-4.6)
[2016-07-26] MEDS: HYDROmorphone HCL 1 MG/ML DISP.SYRIN IV PRN ×3 (07:26→21:10)
[2016-07-26] MEDS: CLONIDINE HCL 0.1 MG TABLET PO SCH ×3 (09:01→20:06)
[2016-07-26] MEDS: amLODIPine BESYLATE 5 MG TABLET PO SCH (09:18)
[2016-07-26] MEDS: BISACODYL 10 MG SUPP.RECT RC SCH (09:19)
[2016-07-26] MEDS: FOLIC ACID 1 MG TABLET PO SCH (09:19)
[2016-07-26] MEDS: POTASSIUM CHLORIDE 20 MEQ TABLET.SA PO SCH ×2 (09:19→20:06)
--- NOTE | 2016-07-26 13:21 | PN ---
Subjective - Date and Time Seen Date: 07/26/16 Time: 13:19 Subjective Narrative: Ambulating in his room. No complains. Objective - Review of Systems Generalized/Overall Review: Denies: Chills, Fever EENTM: Reports: No Symptoms Reported Respiratory: Denies: Cough, Shortness of Breath Cardiac: Denies: Chest Pain, Edema, Palpitations Abdominal: Denies: Nausea, Vomiting Genitourinary Symptoms: Denies: Urgency, Frequency - Vitals Vitals: Last Vital Signs Temp 36.7 C 07/26/16 10:29 Pulse 74 07/26/16 10:29 Resp 20 07/26/16 10:29 BP 109/73 07/26/16 10:29 Pulse Ox 99 07/26/16 10:29 - Abnormal Lab Findings Abnormal Lab Findings: Abnormal Lab Results 07/26/16 Range/Units 05:05 Carbon Dioxide 20.5 L (24-32.6) mmol/L Anion Gap 14.8 H (6.8-13.8) mmol/L BUN 4 L (6-23) mg/dL BUN/Creatinine Ratio 5.2 L (9.0-21.6) Random Glucose 132 H (70-110) mg/dL ALT 70 H (19-67) U/L Albumin 2.4 L (3.4-5.0) gm/dl - Exam Constitutional: Present: Alert, Oriented x3, Cooperative ENT Exam: Present: hearing grossly normal Neck: Present: supple Breasts: Present: Exam deferred Respiratory: Present: normal breath sounds, No rales, No wheezing Cardiovascular/Chest: Present: regular rate, rhythm, no JVD, no murmur Abdomen: Present: Normal bowel sounds, soft, nontender, distended - slightly Extremity: Present: no pedal edema, no calf tenderness Assessment/Plan - Problems/Diagnosis (1) Acute alcoholic pancreatitis Problem: Acute Qualifiers: Acute pancreatitis complication: no infection or necrosis Qualified Code(s) : K85.20 - Alcohol induced acute pancreatitis without necrosis or infection Narrative: continue with NPO and gut rest. TPN started.
[2016-07-26] MEDS: INSULIN LISPRO 100 UNITS/ML VIAL SC SCH ×2 (15:38→20:06)
[2016-07-27] MEDS: KETOROLAC TROMETHAMINE 30 MG/ML VIAL IV PRN ×4 (00:17→19:37)
[2016-07-27] MEDS: HYDROmorphone HCL 1 MG/ML DISP.SYRIN IV PRN ×4 (02:55→21:48)
[2016-07-27] MEDS: INSULIN LISPRO 100 UNITS/ML VIAL SC SCH ×4 (02:55→19:41)
[2016-07-27] MEDS: DEXTROSE 5%-0.5 NORMAL SALINE 1,000 ML IV PRN ×2 (03:48→15:40)
[2016-07-27 06:37] LABS: Albumin * 2.6 gm/dl (3.4-5.0); Anion Gap 13.2 mmol/L (6.8-13.8); BUN/Creatinine Ratio 7.9 (9.0-21.6); Bilirubin, Total 0.5 mg/dL (0.0-1.1); Calcium * 9.2 mg/dL (7.9-10.9); Carbon Dioxide 25.2 mmol/L (24-32.6); Magnesium 1.9 mg/dL (1.2-2.8); Phosphorus 3.9 mg/dL (2.2-4.2); Potassium 3.4 mmol/L (3.4-4.6); Total Protein 7.4 gm/dL (6.2-8.2)
[2016-07-27] MEDS: amLODIPine BESYLATE 5 MG TABLET PO SCH (09:01)
[2016-07-27] MEDS: FOLIC ACID 1 MG TABLET PO SCH (09:02)
[2016-07-27] MEDS: POTASSIUM CHLORIDE 20 MEQ TABLET.SA PO SCH ×2 (09:02→21:44)
[2016-07-27] MEDS: CLONIDINE HCL 0.1 MG TABLET PO SCH ×2 (09:02→21:44)
[2016-07-27] MEDS: BISACODYL 10 MG SUPP.RECT RC SCH (09:03)
--- NOTE | 2016-07-27 10:52 | PN ---
Subjective - Date and Time Seen Date: 07/27/16 Time: 10:51 Subjective Narrative: No N/V/abdominal pain. Objective - Review of Systems Generalized/Overall Review: Denies: Chills, Fever EENTM: Reports: No Symptoms Reported Respiratory: Reports: Cough. Denies: Shortness of Breath Cardiac: Denies: Chest Pain, Palpitations Abdominal: Denies: Nausea, Vomiting, Abdominal Pain Genitourinary Symptoms: Denies: Urgency, Frequency Musculoskeletal Complaints: Denies: Joint Pain - Vitals Vitals: Last Vital Signs Temp 36.3 C L 07/27/16 10:26 Pulse 102 H 07/27/16 10:26 Resp 18 07/27/16 10:26 BP 105/72 07/27/16 10:26 Pulse Ox 97 07/27/16 10:26 - Abnormal Lab Findings Abnormal Lab Findings: Abnormal Lab Results 07/26/16 07/27/16 Range/Units Unknown 05:45 BUN/Creatinine Ratio 7.9 L (9.0-21.6) AST 50 H (0-48) U/L ALT 75 H (19-67) U/L Albumin 2.6 L (3.4-5.0) gm/dl Lipase 1184 H (73-393) U/L - Exam Constitutional: Present: Alert, Oriented x3, Cooperative ENT Exam: Present: hearing grossly normal Neck: Present: supple Breasts: Present: Exam deferred Respiratory: Present: normal breath sounds, No rales, No wheezing Cardiovascular/Chest: Present: regular rate, rhythm, no JVD, no murmur Abdomen: Present: Normal bowel sounds, soft, nontender, nondistended Extremity: Present: no pedal edema, no calf tenderness Assessment/Plan - Problems/Diagnosis (1) Acute alcoholic pancreatitis Problem: Acute Qualifiers: Acute pancreatitis complication: no infection or necrosis Qualified Code(s) : K85.20 - Alcohol induced acute pancreatitis without necrosis or infection Narrative: will get TPN
[2016-07-27] MEDS: POTASSIUM PHOS,M-BASIC-D-BASIC 18 MM, ELECTROLYTE SOLUTION,INJ 20 ML, MULTIVIT INFUSN,A... IV SCH ×6 (13:49)
[2016-07-28] MEDS: DEXTROSE 5%-0.5 NORMAL SALINE 1,000 ML IV PRN ×3 (01:42→23:15)
[2016-07-28] MEDS: KETOROLAC TROMETHAMINE 30 MG/ML VIAL IV PRN ×3 (01:42→14:54)
[2016-07-28] MEDS: INSULIN LISPRO 100 UNITS/ML VIAL SC SCH ×4 (01:46→21:09)
[2016-07-28] MEDS: HYDROmorphone HCL 1 MG/ML DISP.SYRIN IV PRN ×4 (05:03→21:16)
[2016-07-28 05:55] LABS: Albumin * 2.3 gm/dl (3.4-5.0); BUN/Creatinine Ratio 9.7 (9.0-21.6); Bilirubin, Total 0.4 mg/dL (0.0-1.1); Ca. Corrected For Albumin 10.3 mg/dL (8.4-10.2); Calcium * 9.3 mg/dL (7.9-10.9); Carbon Dioxide 25.3 mmol/L (24-32.6); Magnesium 2.1 mg/dL (1.2-2.8); Phosphorus 4.1 mg/dL (2.2-4.2); Potassium 4.3 mmol/L (3.4-4.6); Total Protein 6.8 gm/dL (6.2-8.2)
[2016-07-28] MEDS: BISACODYL 10 MG SUPP.RECT RC SCH (08:36)
[2016-07-28] MEDS: POTASSIUM CHLORIDE 20 MEQ TABLET.SA PO SCH ×2 (08:36→21:11)
[2016-07-28] MEDS: amLODIPine BESYLATE 5 MG TABLET PO SCH (08:36)
[2016-07-28] MEDS: FOLIC ACID 1 MG TABLET PO SCH (08:36)
[2016-07-28] MEDS: CLONIDINE HCL 0.1 MG TABLET PO SCH ×2 (08:36→21:10)
[2016-07-28 09:32] LABS: Amylase * 117 U/L (25-115); Lipase 1129 U/L (73-393)
[2016-07-28] MEDS: FAT EMULSIONS 50 G in Premix Bag 1 BAG IV SCH (10:42)
[2016-07-28] MEDS: POTASSIUM PHOS,M-BASIC-D-BASIC 18 MM, ELECTROLYTE SOLUTION,INJ 20 ML, MULTIVIT INFUSN,A... IV SCH ×6 (13:00)
[2016-07-28] MEDS ORDERED: [UNRECOGNIZED DRUG - OTHER] IV SCH (21:00)
--- NOTE | 2016-07-28 23:51 | PN ---
Subjective - Date and Time Seen Date: 07/28/16 Time: 16:52 Subjective Narrative: Abdominal pain present, maybe a little better. No nausea, vomiting, fever, or chills. Objective - Vitals Vitals: Last Vital Signs Temp 36.3 C L 07/28/16 18:00 Pulse 63 07/28/16 21:10 Resp 16 07/28/16 18:00 BP 115/76 07/28/16 21:10 Pulse Ox 100 07/28/16 18:00 - Abnormal Lab Findings Abnormal Lab Findings: Abnormal Lab Results 07/28/16 07/28/16 Range/Units 04:55 04:55 Anion Gap 14.0 H (6.8-13.8) mmol/L Random Glucose 121 H D (70-110) mg/dL Calcium Adj for Albumin 10.3 H (8.4-10.2) mg/dL Albumin 2.3 L (3.4-5.0) gm/dl Amylase 117 H (25-115) U/L Lipase 1129 H (73-393) U/L - Exam Constitutional: Present: Alert, Oriented x3, Cooperative ENT Exam: Present: hearing grossly normal Respiratory: Present: lungs clear, normal breath sounds Cardiovascular/Chest: Present: regular rate, rhythm, no murmur Abdomen: Present: Normal bowel sounds, soft, nontender, nondistended, tender Skin Exam: Present: normal color, warm/dry, no cyanosis Assessment/Plan - Problems/Diagnosis (1) Acute alcoholic pancreatitis Problem: Acute Qualifiers: Acute pancreatitis complication: no infection or necrosis Qualified Code(s) : K85.20 - Alcohol induced acute pancreatitis without necrosis or infection Narrative: Continue bowel rest with NPO, TPN. Enzymes improving. Will plan to rest GI for about 1 week and then advance diet if enzymes improved.
[2016-07-29] MEDS: HYDROmorphone HCL 1 MG/ML DISP.SYRIN IV PRN ×5 (01:50→23:51)
[2016-07-29] MEDS: INSULIN LISPRO 100 UNITS/ML VIAL SC SCH ×4 (01:53→19:50)
[2016-07-29] MEDS: KETOROLAC TROMETHAMINE 30 MG/ML VIAL IV PRN ×3 (03:45→20:51)
[2016-07-29 05:58] LABS: Albumin * 2.5 gm/dl (3.4-5.0); Anion Gap 11.5 mmol/L (6.8-13.8); BUN/Creatinine Ratio 11.5 (9.0-21.6); Bilirubin, Total 0.3 mg/dL (0.0-1.1); Ca. Corrected For Albumin 10.3 mg/dL (8.4-10.2); Calcium * 9.4 mg/dL (7.9-10.9); Carbon Dioxide 28.3 mmol/L (24-32.6); Phosphorus 4.7 mg/dL (2.2-4.2); Potassium 4.8 mmol/L (3.4-4.6)
[2016-07-29 08:00] LABS: Hematocrit 36.5 % (42.0-52.0); Hemoglobin 12.3 gm/dL (13.5-18.0); Mean Cell Volume 94.3 fl (78-100); Mean Corpuscular Hemoglobin 31.8 pg (27-31); Mean Corpuscular Hgb Conc 33.7 g/dl (32-36); Mean Platelet Volume 9.6 fl (6.0-9.5); Neutrophil # 6.6 K/mm3 (1.3-6.0); Neutrophil % 71.4 % (42-75.0); Platelet Count 540 K/mm3 (150-450); Red Blood Count 3.87 M/mm3 (4.7-6.0); Red Cell Distribution Width 11.9 % (11.5-14.0); White Blood Count 9.2 K/mm3 (4.0-10.5)
[2016-07-29 08:01] LABS: Chol/HDL Risk Ratio 8.1 mg/dL (3.3-5.0)
--- NOTE | 2016-07-29 09:11 | PN ---
Subjective - Date and Time Seen Date: 07/29/16 Time: 09:02 Subjective Narrative: Patient seen today in bed no acute distress, pt stated he was still having moderate discomfort to abdomen that has improved since yesterday. pt anticipating eating when lipase improve and pain resolved. Objective - Review of Systems Generalized/Overall Review: Reports: No Symptoms Reported EENTM: Reports: No Symptoms Reported Respiratory: Reports: No Symptoms Reported Cardiac: Reports: No Symptoms Reported Abdominal: Reports: Abdominal Pain Genitourinary Symptoms: Reports: No Symptoms Reported Musculoskeletal Complaints: Reports: No Symptoms Reported Neurological: Reports: No Symptoms Reported Skin: Reports: No Symptoms Reported Endocrine: Reports: No Symptoms Reported - Vitals Vitals: Last Vital Signs Temp 36.8 C 07/29/16 08:00 Pulse 69 07/29/16 08:00 Resp 18 07/29/16 08:00 BP 104/66 07/29/16 08:00 Pulse Ox 98 07/29/16 08:00 - Abnormal Lab Findings Abnormal Lab Findings: Abnormal Lab Results 07/28/16 07/29/16 07/29/16 Range/Units 04:55 05:25 05:25 RBC (4.7-6.0) M/mm3 Hgb (13.5-18.0) gm/dL Hct (42.0-52.0) % MCH (27-31) pg Plt Count (150-450) K/mm3 MPV (6.0-9.5) fl Immature Gran % (Auto) (0.001-0.429) % Immature Gran # (Auto) (0.000-0.0310) K/mm3 Lymphocytes % (20-51) % Monocytes % (0.0-9) % Neutrophils # (1.3-6.0) K/mm3 Lymphocytes # (1.5-3.5) k/mm3 Monocytes # (0.0-1.0) k/mm3 Potassium 4.8 H (3.4-4.6) mmol/L Calcium Adj for Albumin 10.3 H (8.4-10.2) mg/dL Phosphorus 4.7 H D (2.2-4.2) mg/dL Albumin 2.5 L (3.4-5.0) gm/dl LDL Cholesterol 136 H (70-130) mg/dL HDL Cholesterol 21 L (40-60) mg/dL Cholesterol/HDL Ratio 8.1 H (3.3-5.0) mg/dL Amylase 117 H (25-115) U/L Lipase 1129 H 927 H (73-393) U/L 07/29/16 Range/Units 05:25 RBC 3.87 L (4.7-6.0) M/mm3 Hgb 12.3 L (13.5-18.0) gm/dL Hct 36.5 L (42.0-52.0) % MCH 31.8 H (27-31) pg Plt Count 540 H (150-450) K/mm3 MPV 9.6 H (6.0-9.5) fl Immature Gran % (Auto) 0.70 H (0.001-0.429) % Immature Gran # (Auto) 0.06 H (0.000-0.0310) K/mm3 Lymphocytes % 12.4 L (20-51) % Monocytes % 12.9 H (0.0-9) % Neutrophils # 6.6 H (1.3-6.0) K/mm3 Lymphocytes # 1.1 L (1.5-3.5) k/mm3 Monocytes # 1.2 H (0.0-1.0) k/mm3 Potassium (3.4-4.6) mmol/L Calcium Adj for Albumin (8.4-10.2) mg/dL Phosphorus (2.2-4.2) mg/dL Albumin (3.4-5.0) gm/dl LDL Cholesterol (70-130) mg/dL HDL Cholesterol (40-60) mg/dL Cholesterol/HDL Ratio (3.3-5.0) mg/dL Amylase (25-115) U/L Lipase (73-393) U/L - Exam Constitutional: Present: Alert, Oriented x3, Cooperative, Well developed, No distress ENT Exam: Present: moist mucous membranes Neck: Present: full range of motion Respiratory: Present: chest non-tender, lungs clear, normal breath sounds, no respiratory distress Cardiovascular/Chest: Present: normal peripheral pulses, regular rate, rhythm, no chest tenderness, no edema Abdomen: Present: Normal bowel sounds, soft, nontender, nondistended, no rebound tenderness /Rectal: Present: Exam deferred Extremity: Present: normal range of motion, non-tender, normal inspection, no pedal edema, no calf tenderness Skin Exam: Present: normal color, warm/dry, no cyanosis Lymphatic: Present: no adenopathy Neurologic: Present: oriented x 3 Appearance: Present: appropriate appearance Eye contact: Present: cooperative, good eye contact Thoughts: Present: normal thought pattern Assessment/Plan Plan Narrative: Acute pancreatitis- likely due to alcohol abuse, pt with history of alcohol use 07/25/16 Right forearm PICC line Continue with TPN and lipids Lipase 1129----->927 trending down, pt with reports of some discomfort today, continue to monitor [id number]---->101 WNL continue to monitor Repeat Lipase in am WBC 14.5---->9.2 WNL Encourage use of I/S Alcohol abuse Alcohol cessation educations Continue with folic acid CIWA protocol with ativan and clonidine Hyperkalemia K+ 4.8 continue to monitor VTE ppx: SCD and ambulate GI ppx: protonix Cose Status Full Smoking cassation educations and nicotine patch - Problems/Diagnosis (1) Acute alcoholic pancreatitis Problem: Acute Qualifiers: Acute pancreatitis complication: no infection or necrosis Qualified Code(s) : K85.20 - Alcohol induced acute pancreatitis without necrosis or infection (2) Alcohol abuse Problem: Chronic (3) Smoker Problem: Chronic (4) Hyperkalemia Problem: Acute
[2016-07-29] MEDS: FAT EMULSIONS 50 G in Premix Bag 1 BAG IV SCH (09:38)
[2016-07-29] MEDS: amLODIPine BESYLATE 5 MG TABLET PO SCH (09:38)
[2016-07-29] MEDS: FOLIC ACID 1 MG TABLET PO SCH (09:38)
[2016-07-29] MEDS: CLONIDINE HCL 0.1 MG TABLET PO SCH ×2 (09:38→20:23)
[2016-07-29] MEDS: BISACODYL 10 MG SUPP.RECT RC SCH (09:38)
[2016-07-29] MEDS: NICOTINE 21 MG PATC TD SCH (09:39)
[2016-07-29] MEDS: PANTOPRAZOLE SODIUM 40 MG in NORMAL SALINE 100 ML IV SCH (09:47)
[2016-07-29] MEDS: DEXTROSE 5%-0.5 NORMAL SALINE 1,000 ML IV PRN ×2 (10:27→21:20)
[2016-07-29] MEDS ORDERED: ELECTROLYTE IV SCH ×6 (12:00)
[2016-07-29] MEDS ORDERED: MULTIVIT INFUSN ADULT K IV SCH ×6 (12:00)
[2016-07-29] MEDS ORDERED: [UNRECOGNIZED DRUG - OTHER] IV SCH ×6 (12:00)
[2016-07-30] MEDS: INSULIN LISPRO 100 UNITS/ML VIAL SC SCH ×4 (02:51→19:30)
[2016-07-30] MEDS: KETOROLAC TROMETHAMINE 30 MG/ML VIAL IV PRN ×2 (02:54→11:25)
[2016-07-30] MEDS: HYDROmorphone HCL 1 MG/ML DISP.SYRIN IV PRN ×3 (04:58→22:08)
[2016-07-30 05:59] LABS: Albumin * 2.4 gm/dl (3.4-5.0); Anion Gap 9.2 mmol/L (6.8-13.8); BUN/Creatinine Ratio 17.3 (9.0-21.6); Bilirubin, Total 0.3 mg/dL (0.0-1.1); Ca. Corrected For Albumin 10.3 mg/dL (8.4-10.2); Calcium * 9.3 mg/dL (7.9-10.9); Carbon Dioxide 29.7 mmol/L (24-32.6); Phosphorus 3.9 mg/dL (2.2-4.2); Potassium 3.9 mmol/L (3.4-4.6); Total Protein 6.8 gm/dL (6.2-8.2)
[2016-07-30] MEDS: DEXTROSE 5%-0.5 NORMAL SALINE 1,000 ML IV PRN ×2 (06:59→19:27)
[2016-07-30] MEDS: CLONIDINE HCL 0.1 MG TABLET PO SCH ×2 (08:26→20:45)
[2016-07-30] MEDS: BISACODYL 10 MG SUPP.RECT RC SCH (08:27)
[2016-07-30] MEDS: amLODIPine BESYLATE 5 MG TABLET PO SCH (08:27)
[2016-07-30] MEDS: FOLIC ACID 1 MG TABLET PO SCH (08:27)
[2016-07-30] MEDS: FAT EMULSIONS 50 G in Premix Bag 1 BAG IV SCH (08:27)
[2016-07-30] MEDS: NICOTINE 21 MG PATC TD SCH (08:29)
[2016-07-30] MEDS: PANTOPRAZOLE SODIUM 40 MG in NORMAL SALINE 100 ML IV SCH (08:30)
[2016-07-30] MEDS ORDERED: [UNRECOGNIZED DRUG - OTHER] IV SCH ×6 (09:00)
[2016-07-30] MEDS ORDERED: ELECTROLYTE IV SCH ×6 (09:00)
[2016-07-30] MEDS ORDERED: MULTIVIT INFUSN ADULT K IV SCH ×6 (09:00)
--- NOTE | 2016-07-30 23:37 | PN ---
Subjective - Date and Time Seen Date: 07/30/16 Time: 16:32 Subjective Narrative: Mild abdominal pain. No nausea, vomiting, fever, or chills. Objective - Vitals Vitals: Last Vital Signs Temp 36.2 C L 07/30/16 22:00 Pulse 75 07/30/16 22:00 Resp 16 07/30/16 22:00 BP 107/67 07/30/16 22:00 Pulse Ox 99 07/30/16 22:00 - Abnormal Lab Findings Abnormal Lab Findings: Abnormal Lab Results 07/30/16 Range/Units 04:35 Random Glucose 118 H (70-110) mg/dL Calcium Adj for Albumin 10.3 H (8.4-10.2) mg/dL Albumin 2.4 L (3.4-5.0) gm/dl Lipase 1054 H (73-393) U/L - Exam Constitutional: Present: Alert, Oriented x3, Cooperative ENT Exam: Present: hearing grossly normal Respiratory: Present: lungs clear, normal breath sounds Cardiovascular/Chest: Present: regular rate, rhythm, no murmur Abdomen: Present: Normal bowel sounds, soft, nondistended, no rebound tenderness , no hepatospenomegaly, tender Skin Exam: Present: normal color, warm/dry, no cyanosis Assessment/Plan - Problems/Diagnosis (1) Acute alcoholic pancreatitis Problem: Acute Qualifiers: Acute pancreatitis complication: no infection or necrosis Qualified Code(s) : K85.20 - Alcohol induced acute pancreatitis without necrosis or infection Narrative: Improving, but due to his relapse previously want a week of GI rest before advancing diet. Pancreatic enzymes elevated, will reduce lipid content.
[2016-07-31] MEDS: HYDROmorphone HCL 1 MG/ML DISP.SYRIN IV PRN ×6 (02:12→23:47)
[2016-07-31] MEDS: INSULIN LISPRO 100 UNITS/ML VIAL SC SCH ×4 (02:15→19:31)
[2016-07-31] MEDS: diphenhydrAMINE HCL 50 MG/ML VIAL IV PRN ×3 (05:32→23:55)
[2016-07-31] MEDS ORDERED: ELECTROLYTE IV SCH ×6 (07:00)
[2016-07-31] MEDS ORDERED: MULTIVIT INFUSN ADULT K IV SCH ×6 (07:00)
[2016-07-31] MEDS ORDERED: [UNRECOGNIZED DRUG - OTHER] IV SCH ×6 (07:00)
[2016-07-31] MEDS: DEXTROSE 5%-0.5 NORMAL SALINE 1,000 ML IV PRN ×2 (07:25→19:23)
[2016-07-31] MEDS: BISACODYL 10 MG SUPP.RECT RC SCH (08:52)
[2016-07-31] MEDS: FOLIC ACID 1 MG TABLET PO SCH (08:52)
[2016-07-31] MEDS: NICOTINE 21 MG PATC TD SCH (08:52)
[2016-07-31] MEDS: CLONIDINE HCL 0.1 MG TABLET PO SCH ×2 (08:52→20:07)
[2016-07-31] MEDS: amLODIPine BESYLATE 5 MG TABLET PO SCH (08:52)
[2016-07-31] MEDS: PANTOPRAZOLE SODIUM 40 MG in NORMAL SALINE 100 ML IV SCH (08:52)
[2016-07-31 09:32] LABS: Albumin * 2.6 gm/dl (3.4-5.0); BUN/Creatinine Ratio 12.2 (9.0-21.6); Bilirubin, Total 0.3 mg/dL (0.0-1.1); Ca. Corrected For Albumin 10.1 mg/dL (8.4-10.2); Calcium * 9.3 mg/dL (7.9-10.9); Carbon Dioxide 29.3 mmol/L (24-32.6); Magnesium 1.9 mg/dL (1.2-2.8); Phosphorus 3.8 mg/dL (2.2-4.2); Potassium 4.3 mmol/L (3.4-4.6); Total Protein 6.8 gm/dL (6.2-8.2)
[2016-07-31 10:46] LABS: Amylase * 92 U/L (25-115); Lipase 786 U/L (73-393)
--- NOTE | 2016-07-31 23:08 | PN ---
Subjective - Date and Time Seen Date: 07/31/16 Time: 16:45 Subjective Narrative: Reports abdominal pain improved today, still using IV dilaudid. No nausea. Starting to get appetite back. Objective - Vitals Vitals: Last Vital Signs Temp 36.7 C 07/31/16 22:37 Pulse 63 07/31/16 22:37 Resp 16 07/31/16 22:37 BP 118/76 07/31/16 22:37 Pulse Ox 99 07/31/16 22:37 - Abnormal Lab Findings Abnormal Lab Findings: Abnormal Lab Results 07/31/16 07/31/16 Range/Units 08:36 08:36 Random Glucose 119 H (70-110) mg/dL Albumin 2.6 L (3.4-5.0) gm/dl Lipase 786 H (73-393) U/L - Exam Constitutional: Present: Alert, Oriented x3, Cooperative ENT Exam: Present: hearing grossly normal Respiratory: Present: lungs clear, normal breath sounds Cardiovascular/Chest: Present: regular rate, rhythm, no murmur Abdomen: Present: Normal bowel sounds, soft, nondistended, tender - lower quadrants Assessment/Plan - Problems/Diagnosis (1) Acute alcoholic pancreatitis Problem: Acute Qualifiers: Acute pancreatitis complication: no infection or necrosis Qualified Code(s) : K85.20 - Alcohol induced acute pancreatitis without necrosis or infection Narrative: Lipase improved to 780 today from 1000. Improved since changing lipids from daily to twice a week. Still needing IV dilaudid for pain control, not ready for diet advancement. Especially as the last time I advaned diet his enzymes spiked. Expect 1-2 more days of NPO with TPN before attempting diet advancement again.
[2016-08-01] MEDS: INSULIN LISPRO 100 UNITS/ML VIAL SC SCH ×4 (03:23→20:21)
[2016-08-01] MEDS: MULTIVIT INFUSN ADULT K IV SCH ×6 (03:45)
[2016-08-01] MEDS: ELECTROLYTE IV SCH ×6 (03:45)
[2016-08-01] MEDS: [UNRECOGNIZED DRUG - OTHER] IV SCH ×6 (03:45)
[2016-08-01] MEDS: HYDROmorphone HCL 1 MG/ML DISP.SYRIN IV PRN ×4 (04:01→23:03)
[2016-08-01] MEDS: diphenhydrAMINE HCL 50 MG/ML VIAL IV PRN ×4 (04:18→23:10)
[2016-08-01] MEDS: DEXTROSE 5%-0.5 NORMAL SALINE 1,000 ML IV PRN ×2 (05:21→16:28)
[2016-08-01 06:03] LABS: Albumin * 2.9 gm/dl (3.4-5.0); Bilirubin, Total 0.3 mg/dL (0.0-1.1); Ca. Corrected For Albumin 10.3 mg/dL (8.4-10.2); Calcium * 9.7 mg/dL (7.9-10.9); Carbon Dioxide 29.7 mmol/L (24-32.6); Phosphorus 3.9 mg/dL (2.2-4.2); Potassium 3.7 mmol/L (3.4-4.6); Total Protein 7.8 gm/dL (6.2-8.2)
[2016-08-01] MEDS: PANTOPRAZOLE SODIUM 40 MG in NORMAL SALINE 100 ML IV SCH (08:48)
[2016-08-01] MEDS: BISACODYL 10 MG SUPP.RECT RC SCH (08:52)
[2016-08-01] MEDS: CLONIDINE HCL 0.1 MG TABLET PO SCH (08:52)
[2016-08-01] MEDS: amLODIPine BESYLATE 5 MG TABLET PO SCH (08:52)
[2016-08-01] MEDS: NICOTINE 21 MG PATC TD SCH (08:52)
[2016-08-01] MEDS: FOLIC ACID 1 MG TABLET PO SCH (08:53)
--- NOTE | 2016-08-01 23:17 | PN ---
Subjective - Date and Time Seen Date: 08/01/16 Time: 14:00 Subjective Narrative: Reports tolerable abdominal pain located in lower quadrants. No fever, chills, n /v. Lipase slighly improved today. Objective - Vitals Vitals: Last Vital Signs Temp 36.5 C 08/01/16 22:56 Pulse 70 08/01/16 22:56 Resp 16 08/01/16 22:56 BP 108/71 08/01/16 22:56 Pulse Ox 100 08/01/16 22:56 - Abnormal Lab Findings Abnormal Lab Findings: Abnormal Lab Results 08/01/16 Range/Units 05:44 Calcium Adj for Albumin 10.3 H (8.4-10.2) mg/dL Albumin 2.9 L (3.4-5.0) gm/dl Lipase 717 H (73-393) U/L - Exam Constitutional: Present: Alert, Oriented x3, Cooperative ENT Exam: Present: hearing grossly normal Respiratory: Present: lungs clear, normal breath sounds Cardiovascular/Chest: Present: regular rate, rhythm, no murmur Abdomen: Present: Normal bowel sounds, soft, tender - Bilateral lower quadrants Assessment/Plan - Problems/Diagnosis (1) Acute alcoholic pancreatitis Problem: Acute Qualifiers: Acute pancreatitis complication: no infection or necrosis Qualified Code(s) : K85.20 - Alcohol induced acute pancreatitis without necrosis or infection Narrative: Abdominal pain improved but continues. Lipase improved slightly. Continue NPO with ice chips. TPN adjusted per pharmacy and dietary. Lipids twice a week. If pain tolerable and enzymes improved plan to advance diet tomorrow. If enzymes become elevated consider repeat abd/pelvis CT to re-evaluate pancrease if concerns for necrosis/abscess/pseudocyst.
[2016-08-02] MEDS: ELECTROLYTE IV SCH ×12 (00:08→15:36)
[2016-08-02] MEDS: MULTIVIT INFUSN ADULT K IV SCH ×12 (00:08→15:36)
[2016-08-02] MEDS: [UNRECOGNIZED DRUG - OTHER] IV SCH ×12 (00:08→15:36)
[2016-08-02] MEDS: INSULIN LISPRO 100 UNITS/ML VIAL SC SCH ×4 (02:45→20:32)
[2016-08-02] MEDS: HYDROmorphone HCL 1 MG/ML DISP.SYRIN IV PRN ×4 (03:15→21:32)
[2016-08-02] MEDS: DEXTROSE 5%-0.5 NORMAL SALINE 1,000 ML IV PRN ×2 (04:43→18:40)
[2016-08-02 05:58] LABS: Albumin * 2.7 gm/dl (3.4-5.0); Anion Gap 10.9 mmol/L (6.8-13.8); BUN/Creatinine Ratio 17.3 (9.0-21.6); Bilirubin, Total 0.3 mg/dL (0.0-1.1); Ca. Corrected For Albumin 9.9 mg/dL (8.4-10.2); Calcium * 9.2 mg/dL (7.9-10.9); Carbon Dioxide 27.8 mmol/L (24-32.6); Phosphorus 3.4 mg/dL (2.2-4.2); Potassium 3.7 mmol/L (3.4-4.6); Total Protein 7.3 gm/dL (6.2-8.2)
[2016-08-02] MEDS: BISACODYL 10 MG SUPP.RECT RC SCH (09:42)
[2016-08-02] MEDS: FOLIC ACID 1 MG TABLET PO SCH (09:43)
[2016-08-02] MEDS: PANTOPRAZOLE SODIUM 40 MG in NORMAL SALINE 100 ML IV SCH (09:43)
[2016-08-02] MEDS: NICOTINE 21 MG PATC TD SCH (09:43)
[2016-08-02] MEDS: amLODIPine BESYLATE 5 MG TABLET PO SCH (09:44)
[2016-08-03] MEDS: HYDROmorphone HCL 1 MG/ML DISP.SYRIN IV PRN ×6 (01:53→23:41)
[2016-08-03] MEDS: diphenhydrAMINE HCL 50 MG/ML VIAL IV PRN ×3 (01:58→21:18)
--- NOTE | 2016-08-03 02:20 | PN ---
Subjective - Date and Time Seen Date: 08/03/16 Time: 06:28 Subjective Narrative: Pt trial PO intake yesterday with return of abdominal pain. Pt requesting transfer to [place]. Will complete abdominal CT this am for further evaluation. TPN continues to infuse without difficulty. Pt still requiring frequent administration of pain medication, repeat labs this am. No other acute issues identified. Objective - Review of Systems Generalized/Overall Review: Reports: No Symptoms Reported EENTM: Reports: No Symptoms Reported Respiratory: Reports: No Symptoms Reported Cardiac: Reports: No Symptoms Reported Abdominal: Reports: Nausea, Abdominal Pain Genitourinary Symptoms: Reports: No Symptoms Reported Musculoskeletal Complaints: Reports: No Symptoms Reported Neurological: Reports: No Symptoms Reported Skin: Reports: No Symptoms Reported Endocrine: Reports: Increased Hunger - Vitals Vitals: Last Vital Signs Temp 36.4 C L 08/02/16 18:00 Pulse 75 08/02/16 18:00 Resp 16 08/02/16 18:00 BP 112/71 08/02/16 18:00 Pulse Ox 98 08/02/16 18:00 - Abnormal Lab Findings Abnormal Lab Findings: Abnormal Lab Results 08/02/16 Range/Units 05:21 Albumin 2.7 L (3.4-5.0) gm/dl - Exam Constitutional: Present: Alert, Oriented x3, Cooperative, No distress ENT Exam: Present: normal ENT inspection, hearing grossly normal Respiratory: Present: chest non-tender, lungs clear, normal breath sounds, no respiratory distress, no accessory muscle use Cardiovascular/Chest: Present: normal peripheral pulses, regular rate, rhythm, no chest tenderness, no edema, no murmur Abdomen: Present: Normal bowel sounds, soft, nontender, nondistended, no rebound tenderness, no hepatospenomegaly Extremity: Present: normal range of motion, non-tender, normal inspection, no pedal edema, no calf tenderness, normal capillary refill Skin Exam: Present: normal color, warm/dry, no cyanosis Lymphatic: Present: no adenopathy Neurologic: Present: no motor/sensory deficits, alert, normal mood/affect, oriented x 3 Appearance: Present: appropriate appearance, appropriate insight, neat Eye contact: Present: cooperative, good eye contact, normal speech Thoughts: Present: normal thought pattern, no apparent hallucination Assessment/Plan - Problems/Diagnosis (1) Acute alcoholic pancreatitis Problem: Acute Qualifiers: Acute pancreatitis complication: no infection or necrosis Qualified Code(s) : K85.20 - Alcohol induced acute pancreatitis without necrosis or infection Narrative: Pt with slow to improve pancreatitis. Has continued to no tolerate PO intake, on TPN. CT abdomen pending this am. Consider talking with the [facility] for secondary opinion during the day. Could transfer per pt request if they deem appropriate. Will await CT results today. AM labs pending. -CT abdomen -NPO -Dilaudid 1mg Q4H PRN for pain -CBC/CMP -Amylase/lipase (2) Alcohol abuse Problem: Chronic (3) Smoker Problem: Chronic Narrative: Nicotine patch
[2016-08-03] MEDS: INSULIN LISPRO 100 UNITS/ML VIAL SC SCH ×4 (02:25→21:14)
[2016-08-03 05:22] LABS: Hematocrit 41.4 % (42.0-52.0); Hemoglobin 13.5 gm/dL (13.5-18.0); Mean Cell Volume 94.1 fl (78-100); Mean Corpuscular Hemoglobin 30.7 pg (27-31); Mean Corpuscular Hgb Conc 32.6 g/dl (32-36); Mean Platelet Volume 8.8 fl (6.0-9.5); Neutrophil # 3.9 K/mm3 (1.3-6.0); Neutrophil % 64.3 % (42-75.0); Platelet Count 622 K/mm3 (150-450); Red Cell Distribution Width 11.6 % (11.5-14.0); White Blood Count 6.1 K/mm3 (4.0-10.5)
[2016-08-03 05:40] LABS: Anion Gap 11.5 mmol/L (6.8-13.8); BUN/Creatinine Ratio 17.1 (9.0-21.6); Bilirubin, Total 0.3 mg/dL (0.0-1.1); Ca. Corrected For Albumin 10.1 mg/dL (8.4-10.2); Calcium * 9.6 mg/dL (7.9-10.9); Carbon Dioxide 30.2 mmol/L (24-32.6); Phosphorus 3.8 mg/dL (2.2-4.2); Potassium 3.7 mmol/L (3.4-4.6)
[2016-08-03 06:12] LABS: Amylase * 70 U/L (25-115); Lipase 518 U/L (73-393)
[2016-08-03] MEDS: DEXTROSE 5%-0.5 NORMAL SALINE 1,000 ML IV PRN ×2 (06:21→16:41)
[2016-08-03] MEDS: BISACODYL 10 MG SUPP.RECT RC SCH (09:08)
[2016-08-03] MEDS: MULTIVIT INFUSN ADULT K IV SCH ×6 (09:08)
[2016-08-03] MEDS: [UNRECOGNIZED DRUG - OTHER] IV SCH ×6 (09:08)
[2016-08-03] MEDS: ELECTROLYTE IV SCH ×6 (09:08)
[2016-08-03] MEDS: amLODIPine BESYLATE 5 MG TABLET PO SCH (09:09)
[2016-08-03] MEDS: NICOTINE 21 MG PATC TD SCH (09:09)
[2016-08-03] MEDS: FOLIC ACID 1 MG TABLET PO SCH (09:09)
[2016-08-03] MEDS: PANTOPRAZOLE SODIUM 40 MG in NORMAL SALINE 100 ML IV SCH (09:09)
--- NOTE | 2016-08-03 15:06 | PN ---
Subjective - Date and Time Seen Date: 08/02/16 Time: 09:30 Subjective Narrative: Doing fairly well. Concerned about having pain only when he eats. Would like to try clear liquids today. Ambulating in room. Objective - Review of Systems Generalized/Overall Review: Denies: Weakness, Chills, Fever Respiratory: Denies: Cough, Shortness of Breath Cardiac: Denies: Chest Pain, Edema Abdominal: Reports: Abdominal Pain - Mild with eating. Denies: Nausea, Vomiting - Vitals Vitals: Vitals signs 08/02/16 06:35 Temperature 36.7 C Pulse Rate 68 Respiratory 20 Rate Blood Pressure 110/63 O2 Sat by Pulse 96 Oximetry Oxygen Delivery Room Air Method - Abnormal Lab Findings Abnormal Lab Findings: Lab Results 08/02/16 05:21 Plasma Sodium 139 Potassium 3.7 Chloride 104 Carbon Dioxide 27.8 BUN 13 Creatinine 0.75 Est GFR (Non-Af Amer) 124 Random Glucose 102 Calcium Adj for Albumin 9.9 Phosphorus 3.4 D Magnesium 2.0 AST 34 ALT 56 Alkaline Phosphatase 93 Total Protein 7.3 Albumin 2.7 L - Exam Constitutional: Present: Alert, Oriented x3, Cooperative - Not toxic looking, No distress, Young ENT Exam: Present: hearing grossly normal, moist mucous membranes Respiratory: Present: lungs clear, normal breath sounds, no respiratory distress. Absent: no accessory muscle use Cardiovascular/Chest: Present: regular rate, rhythm, no murmur. Absent: tachycardia Abdomen: Present: Normal bowel sounds, soft, nontender, nondistended. Absent: guarding /Rectal: Present: Exam deferred Extremity: Present: non-tender, normal inspection, no pedal edema Assessment/Plan Plan Narrative: 1. Pancreatitis: Patient currently on TPN. Continues to have pain with eating though lipase has been trending down. Patient expresses a desire to be transferred to [facility] as he has been NPO for several days. Will repeat CT with contrast on 08/03/2016 for formation for formation of pseudocyst/abscess; his last CT being on 07/25/2016. Also will try and ensure clear to be taken very slowly at lunchtime. 2. EtOH abuse: Chronic and stable. 3. Hypertension: Chronic and stable
[2016-08-04] MEDS: INSULIN LISPRO 100 UNITS/ML VIAL SC SCH ×4 (02:18→19:58)
[2016-08-04] MEDS: HYDROmorphone HCL 1 MG/ML DISP.SYRIN IV PRN ×5 (03:58→22:13)
[2016-08-04] MEDS: DEXTROSE 5%-0.5 NORMAL SALINE 1,000 ML IV PRN ×2 (04:09→16:58)
[2016-08-04] MEDS: diphenhydrAMINE HCL 50 MG/ML VIAL IV PRN ×5 (04:09→22:13)
[2016-08-04] MEDS: MULTIVIT INFUSN ADULT K IV SCH ×6 (04:56)
[2016-08-04] MEDS: ELECTROLYTE IV SCH ×6 (04:56)
[2016-08-04] MEDS: [UNRECOGNIZED DRUG - OTHER] IV SCH ×6 (04:56)
[2016-08-04 06:00] LABS: Albumin * 2.8 gm/dl (3.4-5.0); Anion Gap 12.1 mmol/L (6.8-13.8); Bilirubin, Total 0.2 mg/dL (0.0-1.1); Ca. Corrected For Albumin 9.7 mg/dL (8.4-10.2); Calcium * 9.1 mg/dL (7.9-10.9); Carbon Dioxide 25.4 mmol/L (24-32.6); Potassium 3.5 mmol/L (3.4-4.6); Total Protein 7.4 gm/dL (6.2-8.2)
[2016-08-04 06:13] LABS: Magnesium 1.8 mg/dL (1.2-2.8); Phosphorus 3.2 mg/dL (2.2-4.2)
[2016-08-04 08:35] LABS: Amylase * 67 U/L (25-115); Lipase 454 U/L (73-393)
[2016-08-04] MEDS: FOLIC ACID 1 MG TABLET PO SCH (08:43)
[2016-08-04] MEDS: amLODIPine BESYLATE 5 MG TABLET PO SCH (08:44)
[2016-08-04] MEDS: BISACODYL 10 MG SUPP.RECT RC SCH (08:44)
[2016-08-04] MEDS: PANTOPRAZOLE SODIUM 40 MG in NORMAL SALINE 100 ML IV SCH (08:47)
[2016-08-04] MEDS: NICOTINE 21 MG PATC TD SCH (08:47)
[2016-08-04] MEDS ORDERED: ELECTROLYTE IV SCH ×6 (21:00)
[2016-08-04] MEDS ORDERED: [UNRECOGNIZED DRUG - OTHER] IV SCH ×6 (21:00)
[2016-08-04] MEDS ORDERED: MULTIVIT INFUSN ADULT K IV SCH ×6 (21:00)
--- NOTE | 2016-08-04 23:21 | PN ---
Subjective - Date and Time Seen Date: 08/04/16 Time: 17:10 Subjective Narrative: Doing well, tolerating food. No significant pain, nausea, or vomiting. No fever or chills. Objective - Vitals Vitals: Last Vital Signs Temp 37.0 C 08/04/16 18:00 Pulse 94 08/04/16 18:00 Resp 16 08/04/16 18:00 BP 102/71 08/04/16 18:00 Pulse Ox 97 08/04/16 18:00 - Abnormal Lab Findings Abnormal Lab Findings: Abnormal Lab Results 08/04/16 08/04/16 Range/Units 04:55 04:55 Est GFR (Non-Af Amer) 146 H (60-130) mL/min Albumin 2.8 L (3.4-5.0) gm/dl Lipase 454 H (73-393) U/L - Exam Constitutional: Present: Alert, Oriented x3, Cooperative ENT Exam: Present: hearing grossly normal Respiratory: Present: lungs clear, normal breath sounds Cardiovascular/Chest: Present: regular rate, rhythm, no murmur Abdomen: Present: Normal bowel sounds, soft, nontender, nondistended, no rebound tenderness, no hepatospenomegaly Skin Exam: Present: normal color, warm/dry, no cyanosis Assessment/Plan - Problems/Diagnosis (1) Acute alcoholic pancreatitis Problem: Acute Qualifiers: Acute pancreatitis complication: no infection or necrosis Qualified Code(s) : K85.20 - Alcohol induced acute pancreatitis without necrosis or infection Narrative: Continue to advance diet, if doing well and enzymes down plan to discharge to home tomorrow.
[2016-08-05] MEDS: INSULIN LISPRO 100 UNITS/ML VIAL SC SCH ×2 (01:50→07:40)
[2016-08-05] MEDS: HYDROmorphone HCL 1 MG/ML DISP.SYRIN IV PRN ×2 (02:18→06:41)
[2016-08-05] MEDS: diphenhydrAMINE HCL 50 MG/ML VIAL IV PRN ×2 (02:18→06:41)
[2016-08-05] MEDS: DEXTROSE 5%-0.5 NORMAL SALINE 1,000 ML IV PRN (04:57)
[2016-08-05 06:16] LABS: Albumin * 2.8 gm/dl (3.4-5.0); Anion Gap 10.4 mmol/L (6.8-13.8); BUN/Creatinine Ratio 14.9 (9.0-21.6); Bilirubin, Total 0.2 mg/dL (0.0-1.1); Ca. Corrected For Albumin 9.9 mg/dL (8.4-10.2); Calcium * 9.3 mg/dL (7.9-10.9); Carbon Dioxide 28.4 mmol/L (24-32.6); Magnesium 1.6 mg/dL (1.2-2.8); Potassium 3.8 mmol/L (3.4-4.6); Total Protein 7.2 gm/dL (6.2-8.2)
[2016-08-05 08:40] LABS: Hematocrit 37.3 % (42.0-52.0); Hemoglobin 12.4 gm/dL (13.5-18.0); Mean Cell Volume 94.2 fl (78-100); Mean Corpuscular Hemoglobin 31.3 pg (27-31); Mean Corpuscular Hgb Conc 33.2 g/dl (32-36); Mean Platelet Volume 9.2 fl (6.0-9.5); Neutrophil # 2.8 K/mm3 (1.3-6.0); Neutrophil % 56.7 % (42-75.0); Platelet Count 501 K/mm3 (150-450); Red Blood Count 3.96 M/mm3 (4.7-6.0); Red Cell Distribution Width 11.6 % (11.5-14.0); White Blood Count 4.9 K/mm3 (4.0-10.5)
[2016-08-05 08:46] LABS: Amylase * 59 U/L (25-115); Lipase 386 U/L (73-393)
[2016-08-05] MEDS: NICOTINE 21 MG PATC TD SCH (09:37)
[2016-08-05] MEDS: BISACODYL 10 MG SUPP.RECT RC SCH (09:37)
[2016-08-05] MEDS: amLODIPine BESYLATE 5 MG TABLET PO SCH (09:38)
[2016-08-05] MEDS: FOLIC ACID 1 MG TABLET PO SCH (09:38)
[2016-08-05] MEDS: PANTOPRAZOLE SODIUM 40 MG in NORMAL SALINE 100 ML IV SCH (09:40)
--- NOTE | 2016-08-05 11:44 | DS ---
(1) Acute alcoholic pancreatitis Diagnosis(s): Cristofer is a 36 yo male that was admitted for acute alcoholic pancreatitis with initial Lipase near 50,000. He was treated with aggressive IVFs, NPO, given Dilaudid for pain control, and a CT was performed which showed no evidence of abscess or necrosis. Gradually enzymes improved and his abdominal pain was improved. His diet was advanced but his abdominal pain and enzymes worsened. He was made NPO, given a picc line, and started on TPN. His enzymes continued to worsen and TPN was adjusted to have lipids twice a week instead of daily. Enzymes and pain then gradually improved and he was discharged to home. Problem: Acute Qualifiers: Acute pancreatitis complication: no infection or necrosis Qualified Code(s) : K85.20 - Alcohol induced acute pancreatitis without necrosis or infection Procedures Performed: none Discharge Disposition: Home self care Disposition: Home self-care Condition: Fair Discharge Activity: Activity as tolerated Discharge Diet: Low fat/chol, Other - Absolutely no alcohol Referrals: Navi Hooks DO [Staff Physician] - One Week Problem Oriented Discharge Instructions to Patient/Family: Acute Pancreatitis, [id number], Alcohol Abuse and Nutrition Complete Home Medications List: Complete Home Medication List: amLODIPine BESYLATE [Norvasc] 5 mg PO DAILY 07/19/16
[2016-08-05 12:07] VITALS: BP 111/73
== END 2016-08-05 15:10 | disposition home or self-care (01) | DRG 440 ==
LOC: ER 05:10 → MS 07:06
PROVIDERS: ADMIT Family Medicine; ATTEND Family Medicine
PROC: 05HY33Z Insertion of Infusion Device into Upper Vein, Percutaneous Approach (ICD-10-PCS; principal; 2016-07-25)
PROC: 3E0336Z Introduction of Nutritional Substance into Peripheral Vein, Percutaneous Approach (ICD-10-PCS; 2016-07-25)
DX: K85.20 Alcohol induced acute pancreatitis without necrosis or infection (principal); F10.10 Alcohol abuse, uncomplicated; E87.5 Hyperkalemia; I10 Essential (primary) hypertension; F17.210 Nicotine dependence, cigarettes, uncomplicated
CPT/HCPCS: 36415; 71010; 74020; 74170; 74177; 76705; 80053; 80061; 82150; 83690; 83735; 84100; 85007; 85025; 85610; 85730; 96365; 96375; 99284; G0481